=== PATIENT | female | born 1975 | race Caucasian/White ===

== ENCOUNTER 2020-03-24 05:09 | Emergency (ER) | payer MEDICARE, OTHER ==
[~2020-03-24 05:09] MED LIST: PROAIR HFA8.5 GM INH
[2020-03-24 08:16] LABS: HEMOGLOBIN 12.8 gm/dl (12.3-15.3); RED BLOOD COUNT 4.61 M/UL (4.00-5.10); WHITE BLOOD COUNT 8.7 K/UL (4.5-11.0)
[2020-03-24 08:41] LABS: BUN/CREATININE RATIO 15 (0-10)
[2020-03-24] MEDS ORDERED: NITROSTAT0.4 MG SL (12:35)
[2020-03-24] MEDS ORDERED: ASPIRIN CHEWABL81 MG PO (12:35)
== END 2020-03-24 13:12 | disposition home or self-care (01) ==
LOC: ER1 05:09
PROVIDERS: Emergency Medicine
DX: R07.89 Other chest pain (principal); R91.8 Other nonspecific abnormal finding of lung field; R06.02 Shortness of breath; E66.9 Obesity, unspecified; J45.909 Unspecified asthma, uncomplicated; Z88.1 Allergy status to other antibiotic agents; Z88.2 Allergy status to sulfonamides
CPT/HCPCS: 71045; 80053; 82550; 82553; 83874; 84484; 85025; 85379; 93005; 96372; 96374; 96375; 99285; J7040; Q9967

== ENCOUNTER 2021-06-20 17:04 | Emergency (ER) | payer MEDICARE, OTHER ==
[~2021-06-20 17:04] MED LIST changes: +ASPIRIN CHEWABL81 MG PO; +NITROSTAT0.4 MG SL
[2021-06-20 18:03] LABS: HEMOGLOBIN 12.4 gm/dl (12.3-15.3); RED BLOOD COUNT 4.63 M/UL (4.00-5.10)
== END 2021-06-20 20:20 | disposition home or self-care (01) ==
LOC: ER1 17:04
PROVIDERS: Preventive Medicine Occupational Medicine
DX: J03.90 Acute tonsillitis, unspecified (principal)
CPT/HCPCS: 80053; 85025; 86140; 86403; 96374; 96375; 99283; J0696; J2930